=== PATIENT | female | born 1965 | race Caucasian/White ===

== ENCOUNTER 2022-03-08 11:51 | Emergency (ER) | payer OTHER, SELFPAY ==
--- NOTE | ~2022-03-08 | XR_ITS ---
XR foot LT min 3V DATE: 03/08/2022 12:17 INDICATION: Stubbed fifth toe TECHNIQUE: 4 views COMPARISON: None FINDINGS: There is a nondisplaced linear oblique fracture involving the fifth proximal phalanx shaft, neck and head with intra-articular extension medial aspect of the proximal interphalangeal joint. Th ere is no displacement or angulation. No other fracture or dislocation, periosteal reaction or bone destruction. Plantar calcaneal enthesopathy. IMPRESSION: Nondisplaced fracture proximal phalanx of fifth digit Reviewed, dictated and finalized at location A.
[2022-03-08 12:22] VITALS: BP 137/107; PULSE 94; RESP 18; TEMP 36.9; O2SAT 100
--- NOTE | 2022-03-08 12:32 | ED.GENADULT ---
HPI - General Adult General Chief complaint: Extremity Injury, Lower Stated complaint: Lt Foot Pain History of Present Illness HPI narrative: Patient is a 56-year-old female who presents to the [facility] via POV for evaluation of a left pinky toe injury that occurred last night at 7 PM. She reports stubbing her toe on a chair causing pain, swelling, and bruising. She is concerned she may broke a foot bone prompting today's visit. Pain improves with sitting and worsens with weightbearing. Related Data Home Medications Medication Instructions Recorded Confirmed cholecalciferol (vitamin D3) 125 1 cap PO DAILY 03/08/22 03/08/22 mcg (5,000 unit) capsule dicyclomine 20 mg tablet 1 tablet PO DAILY 03/08/22 03/08/22 epinephrine 0.3 mg/0.3 mL 1 ea IM PRN PRN Anaphylaxis 03/08/22 03/08/22 injection, auto-injector montelukast 10 mg tablet 1 tablet PO DAILY 03/08/22 03/08/22 paroxetine HCl 30 mg tablet 1 tablet PO DAILY 03/08/22 03/08/22 rosuvastatin 5 mg tablet 1 tablet PO DAILY 03/08/22 03/08/22 Allergies Allergy/AdvReac Type Severity Reaction Status Date / Time bacitracin AdvReac Mild Rash Verified 03/08/22 12:51 Review of Systems Review of Systems: Pertinent negatives: warmth, numbness, tingling, loss of sensation, deformity, decreased range of motion, weakness, difficulty with ambulation/coordination Exam Narrative: GENERAL: Well-appearing, well-nourished, and in no acute distress. HEAD: Normocephalic, atraumatic. NECK: Supple. No Lymphadenopathy or nuchal rigidity appreciated. CHEST: Bilateral lung marroquin are clear to auscultation. No respiratory distress. No evidence of cough or pleuritic cp upon examination. HEART: Regular rate and rhythm. No murmur, gallop, or rub heard. EXTREMITIES: No evidence of decreased ROM,, cyanosis,, laceration, abrasion, deformity, rash, or puncture. Moderate swelling and contusion noted to right 5th toe and lateral aspect of right foot. Moderate pain with all active/passive ROM. No evidence of dislocation, ligament laxity, effusion, or pain at rest. Pulses palpable at 2+, strength 5/5, and cap refill < 3 seconds in affected extremity. DTRs normal. Ambulates with left sided limp. Slowed gait. SKIN: Warm, dry, no rash. NEURO: No focal deficits. Alert and oriented x3. Course Course Level of Care: Express Care Visit Vital Signs Vital signs: Vital Signs Temperature 98.5 F 03/08/22 12:22 Pulse Rate 94 03/08/22 12:22 Respiratory Rate 18 03/08/22 12:22 Blood Pressure 137/107 H 03/08/22 12:22 Pulse Oximetry 100 03/08/22 12:22 Oxygen Delivery Room Air 03/08/22 12:22 Temperature 98.5 F 03/08/22 12:22 Pulse Rate 94 03/08/22 12:22 Respiratory Rate 18 03/08/22 12:22 Blood Pressure 137/107 H 03/08/22 12:22 Pulse Oximetry 100 03/08/22 12:22 Oxygen Delivery Room Air 03/08/22 12:22 Due to an elevated blood pressure, I had a detailed discussion with the patient and/or guardian regarding the need for follow-up with their primary care provider within the next 3-4 days. Patient verbalized understanding and agreed. Procedures Orthopedic Splinting/Casting Injury #1: Splinting/Casting Date: 03/08/22 Splinting/Casting Time: 13:00 Side: left Upper Extremity Immobilizer: adry tape Lower Extremity Injury Location: toe (left 5th toe) Lower Extremity Immobilizer: post-op shoe and adry tape Pre-Procedure Neuro Vascular Exam: normal Post-Procedure Neuro Vascular Exam: normal Medical Decision Making Differential Diagnosis Differential Diagnosis: Sprain, strain, cellulitis, open fracture, closed fracture, gout Medical Records Medical records narrative: Reviewed Vital Signs Vital Signs: Vital Signs Temperature 98.5 F 03/08/22 12:22 Pulse Rate 94 03/08/22 12:22 Respiratory Rate 18 03/08/22 12:22 Blood Pressure 137/107 H 03/08/22 12:22 Pulse Oximetry 100 03/08/22 12:22 Oxygen Deliver
[2022-03-08 12:50] VITALS: BP 137/107; PULSE 100; RESP 18; TEMP 36.9; O2SAT 100
== END 2022-03-08 13:00 | disposition home or self-care (01) ==
PROVIDERS: Emergency Provider Nurse Practitioner Family
DX: S92.515A Nondisplaced fracture of proximal phalanx of left lesser toe(s), initial encounter for closed fracture (principal); W22.03XA Walked into furniture, initial encounter
CPT/HCPCS: 73630; 99204; G0463